=== PATIENT | female | born 1990 | race Caucasian/White ===

== ENCOUNTER 2017-01-13 00:49 | Emergency (ER) | payer SELFPAY ==
[~2017-01-13] VITALS: Ht 172.7 cm; Wt 77.0 kg
[2017-01-13 00:51] VITALS: BP 170/79; PULSE 133; RESP 24; O2SAT 98
[2017-01-13 01:16] VITALS: BP 144/106; PULSE 84; RESP 22; O2SAT 98
[2017-01-13] MEDS ORDERED: SODIUM CHLOR 0.9% 1000 ML INJ 1,000 ML IV SCH (01:19)
[2017-01-13] MEDS ORDERED: MORPHINE SULFATE 4 MG/ML INJ IV ONE (01:30)
[2017-01-13] MEDS ORDERED: DIPHTH/TETANUS/ACEL PERTUSSIS (BOOSTER) 0.5 ML VIAL/PFS IM ONE (01:30)
[2017-01-13] MEDS ORDERED: ONDANSETRON HCL 4 MG/2 ML VIAL IVP ONE (01:30)
[2017-01-13] MEDS ORDERED: ceFAZolin 2 GM PREMIX 50 ML IV ONE (01:30)
[2017-01-13 01:36] VITALS: O2SAT 96
[2017-01-13] MEDS ORDERED: MORPHINE SULFATE 4 MG/ML INJ IV PUSH ONE (01:45)
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
[2017-01-13 01:50] LABS: AUTOMATED NEUTROPHIL # 6.8 TH/MM3 (1.8-7.7); BASOPHIL # 0.1 TH/MM3 (0-0.2); BASOPHIL % 0.6 % (0.0-2.0); EOSINOPHIL # 0.2 TH/MM3 (0-0.4); EOSINOPHIL % 2.5 % (0.0-4.0); HEMATOCRIT 39.2 % (35.0-46.0); HEMO FLAGS DIFF FINAL; LYMPH % 22.2 % (9.0-44.0); LYMPHOCYTE # 2.2 TH/MM3 (1.0-4.8); MEAN CELL VOLUME 81.9 FL (80.0-100.0); MEAN CORPUSCULAR HEMOGLOBIN 27.7 PG (27.0-34.0); MEAN CORPUSCULAR HGB CONC 33.9 % (32.0-36.0); MONO % 6.5 % (0.0-8.0); NEUT % 68.2 % (16.0-70.0); PLATELET COUNT 294 TH/MM3 (150-450); RED BLOOD COUNT 4.79 MIL/MM3 (4.00-5.30); RED CELL DISTRIBUTION WIDTH 12.8 % (11.6-17.2)
[2017-01-13 01:58] LABS: APTT (PATIENT) 28.3 SEC (24.3-30.1); PROTHROMBIN TIME - PATIENT 10.5 SEC (9.8-11.6)
[2017-01-13 02:01] LABS: ALT (GPT) 24 U/L (10-53); ANION GAP 9 MEQ/L (5-15); AST (GOT) 18 U/L (15-37); BICARBONATE 27.2 MEQ/L (21.0-32.0); BLOOD UREA NITROGEN 9 MG/DL (7-18); CHLORIDE 106 MEQ/L (98-107); GLOMERULAR FILTRATION RATE 71 ML/MIN (>89); POTASSIUM 3.6 MEQ/L (3.5-5.1); SODIUM (NA) 142 MEQ/L (136-145)
[2017-01-13 02:03] LABS: ALKALINE PHOSPHATASE 78 U/L (45-117); TOTAL BILIRUBIN ADULT 0.4 MG/DL (0.2-1.0)
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
[2017-01-13 02:35] VITALS: BP 140/85; PULSE 83; RESP 18; O2SAT 99
[2017-01-13 02:58] VITALS: BP 127/77; PULSE 98; RESP 18; O2SAT 99
[2017-01-13] MEDS ORDERED: HYDROmorphone HCL PF 1 MG/ML VIAL IV PUSH ONE ×3 (03:00→05:45)
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
[2017-01-13 05:25] VITALS: BP 122/62; PULSE 69; RESP 18; O2SAT 99
--- NOTE | 2017-01-13 08:10 | EKG ---
Date Performed: 01/13/2017 Time Performed: 01:48:30 PTAGE: 26 years EKG: Sinus rhythm NORMAL ECG NO PREVIOUS TRACING DOCTOR: Andrzej Hagen Interpretating Date/Time 01/13/2017 08:08:31
== END 2017-01-13 05:57 | disposition short-term general hospital (02) ==
LOC: NEPC 00:49
DX: S02.622B Fracture of subcondylar process of left mandible, initial encounter for open fracture (principal); R00.0 Tachycardia, unspecified; F17.200 Nicotine dependence, unspecified, uncomplicated; Y04.2XXA Assault by strike against or bumped into by another person, initial encounter; Z23 Encounter for immunization
CPT/HCPCS: 70450; 70486; 71010; 72125; 80053; 80307; 84703; 85025; 85610; 85730; 90471; 90715; 93005; 96361; 96374; 96375; 96376; 99285; J0690; J1170; J2270; J2405; J7030; L0150

== ENCOUNTER 2017-01-18 19:33 | Emergency (ER) | payer SELFPAY ==
[~2017-01-18] VITALS: Ht 172.7 cm; Wt 80.0 kg
[2017-01-18 19:36] VITALS: BP 149/79; PULSE 107; RESP 20; TEMP 98.8; O2SAT 98
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
[2017-01-18] MEDS ORDERED: OXYC1CON3 PO (20:31)
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
[2017-01-18] MEDS ORDERED: oxyCODONE HCL ORAL CONC 20 MG/ML SYRINGE PO ONE (21:30)
[2017-01-18] MEDS ORDERED: AUGM400S PO (22:30)
[2017-01-18] MEDS ORDERED: HYDR1SOL3 PO (22:30)
== END 2017-01-18 22:47 | disposition home or self-care (01) ==
LOC: NEPE 19:33
DX: G89.18 Other acute postprocedural pain (principal); R22.0 Localized swelling, mass and lump, head; F17.210 Nicotine dependence, cigarettes, uncomplicated
CPT/HCPCS: 99284

== ENCOUNTER 2017-02-09 04:35 | Emergency (ER) | payer SELFPAY ==
[~2017-02-09] VITALS: Ht 175.3 cm; Wt 80.0 kg
[~2017-02-09 04:35] MED LIST: AUGM400S PO; HYDR1SOL3 PO; OXYC1CON3 PO
[2017-02-09 04:40] VITALS: BP 130/77; PULSE 68; RESP 15; O2SAT 95
[2017-02-09] MEDS ORDERED: ACETAMINOPHEN 325MG/HYDROcodone 7.5MG/15ML UDC PO ONE (04:45)
[2017-02-09] MEDS ORDERED: HYDR1SOL3 PO (04:53)
--- NOTE | 2017-02-09 04:53 | PD ---
HPI Chief Complaint: Oral / Dental Pain or Problem Time Seen by Provider: 04:39 Travel History International Travel<30 days: No Contact w/Intl Traveler<30days: No Traveled to known affect area: No History of Present Illness HPI The patient is a 26-year-old female who presents to the emergency department for jaw pain. The patient states she had her jaw broke approximately one month ago, was seen at [facility] transferred to [facility] to have surgery performed. The patient was advised to return to have the wires removed, however, states she has difficulty obtaining transportation [place]. The patient then moved to [place], but was unable to see an oral maxillofacial surgeon in [place]. She returns to [facility] where her mother lives, states her mother is going to help her get [place], however, her mother' s transmission when out. The patient states she is unable to obtain transportation to [facility]. The patient walked up to EMS station earlier today requesting transfer to [facility]. The patient denies any acute trauma to the jaw, states she is able to swallow without difficulty, denies any inflammation or infection. She denies any fever, chills, or sweats. PFSH Past Medical History ?: Not Past Surgical History Other Surgery: Yes ([facility] ) Social History Alcohol Use: No Tobacco Use: Yes (one half pack per day) Substance Use: Yes Allergies-Medications (Allergen,Severity, Reaction): Coded Allergies: No Known Allergies (Unverified , 02/09/17) Reported Meds & Prescriptions Reported Meds & Active Scripts Active No Active Prescriptions or Reported Medications Review of Systems Except as stated in HPI: all other systems reviewed are Neg HENT: Positive: Dental Difficulties, Other Physical Exam Narrative GENERAL: Awake, alert, nontoxic-appearing 26-year-old female appears her stated age is in no acute respiratory distress. SKIN: Focused skin assessment warm/dry. HEAD: Atraumatic. Normocephalic. EYES: Pupils equal and round. No scleral icterus. No injection or drainage. ENT: No nasal bleeding or discharge. Patient has wired of the upper and lower jaw, there is no visible swelling or erythema noted. No bleeding or drainage noted.. NECK: Trachea midline. No JVD. CARDIOVASCULAR: Regular rate and rhythm. No murmur appreciated. RESPIRATORY: No accessory muscle use. Clear to auscultation. Breath sounds equal bilaterally. MUSCULOSKELETAL: No obvious deformities. No clubbing. No cyanosis. No edema. NEUROLOGICAL: Awake and alert. No obvious cranial nerve deficits. Motor grossly within normal limits. Normal speech. PSYCHIATRIC: Appropriate mood and affect; insight and judgment normal. Data Data Last Documented VS Vital Signs Date Time Temp Pulse Resp B/P Pulse Ox O2 Delivery O2 Flow Rate FiO2 02/09/17 04:43 68 02/09/17 04:40 15 130/77 95 Orders Acetamin-Hydrocod 325-7.5 Liq (Hycet 325 (02/09/17 04:45) MDM Medical Decision Making Medical Screen Exam Complete: Yes Emergency Medical Condition: Yes Medical Record Reviewed: Yes Differential Diagnosis Differential diagnosis includes jaw fracture, postoperative infection, postoperative complication, noncompliance. Narrative Course The patient is advised to follow-up with her oral maxillofacial surgeon that performed the surgery at [facility]. We did discuss the patient with case management , case management states they're unable to obtain transportation for the patient to [place]. The patient is advised to find transportation [place] to have the wires removed. I will refill her pain medications. She is stable for outpatient follow-up. Diagnosis Primary Impression: Mandibular fracture Qualified Code: S02.609D - Open fracture of mandible with routine healing, unspecified laterality, unspecified mandibular site, subsequent encounter Patient Instructions: Narcotic given in the ED Additional Instructions: Follow-up with a surgeon at [facility] who performed the surgery, Dr. Denny. Pain medication as directed. Med/Other Pt SpecificInfo: Prescription(s) given Scripts Hydrocodone-Acetaminophen Liq 7.5-325 Mg/15 Ml Soln15 Ml PO Q6H PRN (PAIN) #240 ML Ref 0 Prov:Polo Aponte MD 02/09/17 Disposition: 01 DISCHARGE HOME Condition: Stable Polo Aponte MD Feb 09, 2017 04:53
== END 2017-02-09 05:59 | disposition home or self-care (01) ==
LOC: NEPE 04:35
DX: S02.609D Fracture of mandible, unspecified, subsequent encounter for fracture with routine healing (principal); F17.200 Nicotine dependence, unspecified, uncomplicated; X58.XXXD Exposure to other specified factors, subsequent encounter
CPT/HCPCS: 99283

== ENCOUNTER 2017-06-22 07:46 | Emergency (ER) | payer SELFPAY ==
[~2017-06-22] VITALS: Ht 175.3 cm; Wt 82.0 kg
[~2017-06-22 07:46] MED LIST changes: -AUGM400S PO; -OXYC1CON3 PO
[2017-06-22 07:57] VITALS: BP 122/78; RESP 24; TEMP 98.3; O2SAT 93
--- NOTE | 2017-06-22 08:27 | RADRPT ---
EXAM DATE/TIME: 06/22/2017 08:23 [facility] COMPARISON: CHEST SINGLE AP, January 13, 2017, 1:32. INDICATIONS : Shortness of breath, possible overdose. MEDICAL HISTORY : None. SURGICAL HISTORY : None. ENCOUNTER: Initial ACUITY: 1 day PAIN SCORE: 0/10 LOCATION: Bilateral chest FINDINGS: A single view of the chest demonstrates diminished lung volumes without evidence of mass, infiltrate or effusion. The cardiomediastinal contours are unremarkable. Osseous structures are intact. CONCLUSION: Diminished lung volumes. No acute disease. Castillo Bueno MD on June 22, 2017 at 8:25 Board Certified Radiologist. This report was verified electronically.
--- NOTE | 2017-06-22 11:49 | EKG ---
Date Performed: 06/22/2017 Time Performed: 08:01:47 PTAGE: 26 years EKG: Sinus rhythm NORMAL ECG NO PREVIOUS TRACING DOCTOR: Andrzej Hagen Interpretating Date/Time 06/22/2017 11:48:15
--- NOTE | 2017-06-22 12:55 | PD ---
HPI Chief Complaint: OD/ Ingestion Time Seen by Provider: 08:11 Travel History International Travel<30 days: No Contact w/Intl Traveler<30days: No Traveled to known affect area: No History of Present Illness HPI 26-year-old female was brought in by EMS as a heroin overdose. She was found with a GCS of 3 and cyanotic. Patient received Narcan at the scene which woke her up and she has been awake and breathing since then. He does seem a little bit somnolent but does answer questions appropriately. The police is here with her as well. Patient says that she shoots heroin every day. She used somebody else's and thinks that was the reason why she overdosed. Vital signs are stable. Patient received a total of 1.2 mg of Narcan IV. Patient has refused to do any blood work. [facility] Past Medical History Narrative Medical List of her past medical, surgical, social and family history is reviewed from the nursing note. Medical History: Denies Significant Hx Influenza Vaccination: No ?: Unknown Past Surgical History Other Surgery: Yes ([facility] ) Social History Alcohol Use: Yes Tobacco Use: Yes (one half pack per day) Substance Use: Yes (HEROINE, COCAINE) Allergies-Medications (Allergen,Severity, Reaction): Coded Allergies: No Known Allergies (Unverified Adverse Reaction, Unknown, 06/22/17) Comments No known drug allergies. Reported Meds & Prescriptions Reported Meds & Active Scripts Active No Active Prescriptions or Reported Medications Narrative Medication List of her home medications reviewed from the nursing note. Review of Systems ROS Limitations: Altered Mental Status Except as stated in HPI: all other systems reviewed are Neg Psychiatric: Positive: Substance Abuse Physical Exam Narrative GENERAL: Lethargic but answering questions appropriately, disheveled SKIN: Focused skin assessment warm/dry. Poor skin hygiene HEAD: Atraumatic. Normocephalic. EYES: Pupils equal and round. No scleral icterus. No injection or drainage. ENT: No nasal bleeding or discharge. Mucous membranes pink and moist. NECK: Trachea midline. No JVD. CARDIOVASCULAR: Regular rate and rhythm. No murmur appreciated. RESPIRATORY: No accessory muscle use. Clear to auscultation. Breath sounds equal bilaterally. GASTROINTESTINAL: Abdomen soft, non-tender, nondistended. Hepatic and splenic margins not palpable. MUSCULOSKELETAL: No obvious deformities. No clubbing. No cyanosis. No edema. NEUROLOGICAL: GCS of 14. No obvious cranial nerve deficits. Motor grossly within normal limits. Slurred speech. PSYCHIATRIC: Appropriate mood and affect; insight and judgment normal. Data Data Last Documented VS Vital Signs Date Time Temp Pulse Resp B/P (MAP) Pulse Ox O2 Delivery O2 Flow Rate FiO2 06/22/17 13:12 06/22/17 13:08 72 17 98 Room Air 06/22/17 07:57 98.3 Orders Orders Chest, Single Ap (06/22/17 ) Electrocardiogram (06/22/17 ) Ed Discharge Order (06/22/17 12:51) [facility] Medical Decision Making Medical Screen Exam Complete: Yes Emergency Medical Condition: Yes Medical Record Reviewed: Yes Interpretation(s) Twelve-lead EKG was reviewed by me. Normal sinus rhythm, normal axis, nonspecific ST-T wave changes. Heart rate of 75 bpm. Differential Diagnosis Heroin overdose Narrative Course 12:54 PM I just reassessed the patient. She was sleeping but woke up abruptly as I called her name. Chest x-ray was done initially since patient had vomited. X-ray is negative for any aspiration pneumonia. I'm comfortable discharging her home. Procedures EKG Prior to Arrival: No Diagnosis Primary Impression: Accidental heroin overdose Qualified Codes: T40.1X1A - Poisoning by heroin, accidental (unintentional), initial encounter Referrals: Primary Care Physician Additional Instructions: Heroin or any illicit drugs are dangerous to your health. You should not be using them. Med/Other Pt SpecificInfo: No Change to Meds Scripts No Active Prescriptions or Reported Meds Disposition: 01 DISCHARGE HOME Condition: Stable Sridevi Mills MD Jun 22, 2017 12:55
[2017-06-22 13:08] VITALS: BP 97/51; PULSE 72; RESP 17; O2SAT 98
== END 2017-06-22 13:56 | disposition home or self-care (01) ==
LOC: NEPC 07:46
DX: T40.1X1A Poisoning by heroin, accidental (unintentional), initial encounter (principal); R06.02 Shortness of breath
CPT/HCPCS: 71010; 93005; 99284

== ENCOUNTER 2017-12-25 19:20 | Emergency (ER) | payer MEDICAID, OTHER ==
[~2017-12-25] VITALS: Ht 175.3 cm; Wt 95.0 kg
[2017-12-25 19:35] VITALS: BP 141/78; PULSE 99; RESP 16; TEMP 97.9; O2SAT 97
[2017-12-25 23:42] VITALS: BP 167/108; PULSE 92; RESP 18; O2SAT 100
[2017-12-25] MEDS ORDERED: CLEO300C2 PO (23:52)
[2017-12-26] MEDS ORDERED: CLINDAMYCIN 150 MG CAP PO ONE
--- NOTE | 2017-12-26 00:03 | PD ---
HPI Chief Complaint: Skin Problem Time Seen by Provider: 23:41 Travel History International Travel<30 days: No Contact w/Intl Traveler<30days: No Traveled to known affect area: No History of Present Illness HPI 27-year-old white female with a 23 week who has not received care as of yet presents with complains of a right axilla abscess. She states that over the past week it has become increasingly painful and swollen. She denies any fever chills. She does report some intermittent abdominal cramping and was planning on going upstairs to L&D to be evaluated. Symptoms are moderate. No alleviating factors. No exacerbating factor. PFSH Past Medical History Narrative Medical Substance abuse, Tetanus Vaccination: Unknown ?: LMP: 06/16/17 Past Surgical History Surgical History: No Previous Surgery Other Surgery: Yes ([facility] ) Social History Alcohol Use: Yes Tobacco Use: Yes (one half pack per day) Substance Use: Yes (HEROINE, COCAINE) Allergies-Medications (Allergen,Severity, Reaction): Coded Allergies: No Known Allergies (Unverified Adverse Reaction, Unknown, 12/25/17) Reported Meds & Prescriptions Reported Meds & Active Scripts Active Cleocin (Clindamycin HCl) 300 Mg Cap 300 Mg PO Q6H 10 Days Review of Systems General / Constitutional: No: Fever Eyes: No: Visual changes HENT: No: Headaches Cardiovascular: No: Chest Pain or Discomfort Respiratory: No: Shortness of Breath Gastrointestinal: No: Abdominal Pain Genitourinary: Positive: Pelvic Pain, No: Dysuria Musculoskeletal: No: Pain Skin: Positive Rash, Positive Lumps Neurologic: No: Weakness Psychiatric: No: Depression Endocrine: No: Polydipsia Hematologic/Lymphatic: No: Easy Bruising Physical Exam Narrative GENERAL: This is a well-nourished, well-developed patient, in no apparent distress. SKIN: Patient has a 2 x 3 cm fluctuant abscess to the right axilla with a large lymph node inferiorly. It is tender, erythematous. No pointing. HEAD: Atraumatic. Normocephalic. EYES: PERRL, EOMI, no discharge or injection. No scleral icterus. EARS: Clear NOSE: Nasal turbinates appear normal. THROAT: Mucosa pink and moist. Airway patent. NECK: Trachea midline. supple, moves head freely. LUNGS: Clear to auscultation. CV: Regular in rhythm. ABDOMEN: Soft nontender. Obese, gravid. EXT: No clubbing cyanosis or edema. Data Data Last Documented VS Vital Signs Date Time Temp Pulse Resp B/P (MAP) Pulse Ox O2 Delivery O2 Flow Rate FiO2 12/25/17 23:55 12/25/17 23:42 92 18 100 Room Air 12/25/17 19:35 97.9 Orders Orders Ed Discharge Order (12/25/17 23:54) Clindamycin (Cleocin) (12/26/17 00:00) MDM Medical Decision Making Medical Screen Exam Complete: Yes Emergency Medical Condition: Yes Medical Record Reviewed: Yes Differential Diagnosis MDM: High Differential diagnoses: Abscess, folliculitis, cellulitis, lymphangitis, abrasion, contact dermatitis Narrative Course Needle aspiration has been performed. Patient given clindamycin 300 mg p.o. She will be discharged and have her follow up with L&D. Procedures Procedure Narrative Right axilla needle aspiration: The skin is prepped with Hibiclens. 1% lidocaine with epinephrine local. An 18-gauge needle was inserted into the abscess cavity after adequate anesthesia. 4 cc of purulent pus is expressed. The abscess is decompressed. She is feeling much improved. No complication. Diagnosis Primary Impression: Right axilla abscess Patient Instructions: General Instructions Additional Instructions: Rest. Elevation. keep clean and dry. Warm compresses. Clindamycin. Follow-up with a [employer] doctor this week. Follow-up with a primary care doctor in one week. Return to the ER for any problems. Med/Other Pt SpecificInfo: Prescription(s) given Scripts Clindamycin (Cleocin) 300 Mg Cap 300 MG PO Q6H for Infection for 10 Days, #40 CAP 0 Refills Prov: Celena Red DO 12/25/17 Disposition: 01 DISCHARGE HOME Condition: Stable Joaquin Bruner December 26, 2017 00:03
== END 2017-12-26 00:16 | disposition home or self-care (01) ==
LOC: NETRI 19:20 → NEPD 19:20 → NETRI 21:41 → NEPD 12-26 00:16
DX: O99.89 Other specified diseases and conditions complicating pregnancy, childbirth and the puerperium (principal); L02.411 Cutaneous abscess of right axilla; Z3A.23 23 weeks gestation of pregnancy
CPT/HCPCS: 10160

== ENCOUNTER 2017-12-26 00:22 | Emergency (ER) | payer SELFPAY ==
[~2017-12-26 00:22] MED LIST changes: +CLEO300C2 PO; -HYDR1SOL3 PO
[2017-12-26 00:47] VITALS: RESP 16; TEMP 98.5
[2017-12-26 00:49] VITALS: BP 130/75; PULSE 81
--- NOTE | 2017-12-26 00:56 | PD ---
HPI Chief Complaint pelvic pain Date Seen: December 26, 2017 Time Seen: 00:42 Travel History International Travel<30 Days: No Contact w/Intl Traveler<30Days: No Known Affected Area: No History of Present Illness HPI Pt is a 27y/o @ unknown EGA. She has no PNC. She presents for abdominal cramping. She states that her LMP was in May. She "didn't think about being " b/c she has "endometriosis" which causes irregular periods. 1m ago, pt states she took a UPT which was positive. She had bleeding but states she had to go to [place] for a family emergency and was arrested/ incarcerated while there. She spent a month in assisted and was just released. She denies seeing a provider for care while incarcerated. She states that she didn't even know if she was still b/c of the bleeding a month earlier. She requested a UPT which was positive prior to release. That was 1 wk ago. Pt states yesterday she went to the and enrolled in Medicaid and has an appt Thursday to choose an OBGYN for care. She reports that she was a high risk her last baby due to "antibodies to S". She denies LOF, VB, ctx. She is just wanting to get "checked out" today. She was sent from the ED after being seen for an axillary abscess. Pt has a h/o IVDA with overdose last year. When asked, she reports she "smokes cigarettes" and "recent did some heroin". Para: 2 : 3 History Past Medical History Narrative Medical polysubstance abuse Obstetric History Obstetric History x2 Past Surgical History Surgical History: No Previous Surgery Family History Family History: Negative Social History Alcohol Use: No Tobacco Use: Yes Substance Abuse: Yes (per chart, daily heroin/cocaine) Allergies-Medications (Allergen,Severity, Reaction): Coded Allergies: No Known Allergies (Unverified Adverse Reaction, Unknown, 12/25/17) Home Meds Active Scripts Clindamycin (Cleocin) 300 Mg Cap, 300 MG PO Q6H for Infection for 10 Days, #40 CAP 0 Refills Prov:Celena Red DO 12/25/17 Review of Systems Except as stated in HPI: all other systems reviewed are Neg Physical Exam Narrative General: well developed, well nourished, no acute distress HEENT: normocephalic atraumatic, extraocular movements intact, neck supple Abdomen: soft, gravid, nontender, nondistended Uterus: fundus palpates to 20wks Extremities: full range of motion Skin: normal coloration, no rashes, covered in track keating and wounds from IVDA Neurologic: cranial nerves 2-12 grossly intact, normal muscle tone, normal gait Psychiatric: normal mood and affect, appropriate FHTs: present @ [address] [employer]: quiet Cvx: deferred Data Data Vital Signs Reviewed: Yes Orders Orders Vital Signs (Adult) .ON ADMISSION (12/26/17 00:31) ^ Labor Status (12/26/17:31) Urinalysis - C+S If Indicated (12/26/17:31) ^ Non Stress Test (12/26/17:31) Drug Screen, Random Urine (12/26/17:31) MDM Plan 27y/o @ unknown EGA with no PNC, IVDA, pelvic pain. -- +FHTs -- toco quiet -- urine dip neg for UTI -- UDS sent Dispo: d/c home with precautions, advised against illicits in , counseled on the importance of PNC Diagnosis Diagnosis: Primary Impression: Additional Impressions: No care in current IV drug abuse complicating Pelvic pain affecting Harshal Mendiola MD December 26, 2017 00:56
[2017-12-26 01:29] LABS: AMORPHOUS SEDIMENT, URINE RARE; BACTERIA, URINE RARE /hpf; BILIRUBIN, URINE NEG (NEG); BLOOD, URINE NEG (NEG); GLUCOSE,URINE NEG (NEG); KETONE, URINE NEG (NEG); MUCUS URINE FEW /lpf (OCC); NITRITE,URINE NEG (NEG); PH, URINE 7.5 (5.0-8.5); SQUAMOUS EPITHELIAL CELL URINE 3 /hpf (0-5); URINE COLOR YELLOW (YELLW/STRAW); URINE LEUKOCYTE ESTERASE NEG (NEG)
== END 2017-12-26 02:16 | disposition home or self-care (01) ==
LOC: HOBED 00:22
DX: O09.30 Supervision of pregnancy with insufficient antenatal care, unspecified trimester (principal); O26.899 Other specified pregnancy related conditions, unspecified trimester; R10.2 Pelvic and perineal pain; O99.320 Drug use complicating pregnancy, unspecified trimester; F11.90 Opioid use, unspecified, uncomplicated; Z3A.00 Weeks of gestation of pregnancy not specified
CPT/HCPCS: 80307; 81001; 99283

== ENCOUNTER 2018-02-07 19:12 | Emergency (ER) | payer OTHER ==
[~2018-02-07] VITALS: Ht 162.6 cm; Wt 72.0 kg
[2018-02-07 19:17] VITALS: BP 137/63; PULSE 94; RESP 16; TEMP 98.4; O2SAT 99
[2018-02-07] MEDS ORDERED: CLIN150C14 PO (19:57)
[2018-02-07] MEDS ORDERED: BACT800T5 PO (19:57)
--- NOTE | 2018-02-07 19:57 | PD ---
HPI Chief Complaint: Skin Problem Time Seen by Provider: 19:42 Travel History International Travel<30 days: No Contact w/Intl Traveler<30days: No Traveled to known affect area: No History of Present Illness HPI 27-year-old female complains of infected lesions on extremity. Patient has history: Infected lesions on extremity. Patient has history IV drug abuse. Patient denies any fever chills. Patient states that she has increasing pain and swelling on the axillas area in both arms for the past few days. Patient denies any headache. Patient denies any neck pain. Patient denies any chest pain or shortness of breath. Patient denies abdominal pain. Patient denies any back pain. Patient denies any nausea vomiting diarrhea. PFSH Past Medical History Immunizations Current: Yes Tetanus Vaccination: < 5 Years Influenza Vaccination: No ?: Unknown LMP: 02/05/18 Past Surgical History Other Surgery: Yes ([facility] ) Social History Alcohol Use: No Tobacco Use: Yes Substance Use: Yes (HEROINE, COCAINE) Allergies-Medications (Allergen,Severity, Reaction): Coded Allergies: No Known Allergies (Unverified Adverse Reaction, Unknown, 02/07/18) Reported Meds & Prescriptions Reported Meds & Active Scripts Active Cleocin (Clindamycin HCl) 300 Mg Cap 300 Mg PO Q6H 10 Days Review of Systems General / Constitutional: No: Fever Eyes: No: Visual changes HENT: No: Headaches Cardiovascular: No: Chest Pain or Discomfort Respiratory: No: Shortness of Breath Gastrointestinal: No: Abdominal Pain Genitourinary: No: Dysuria Musculoskeletal: Positive: Pain Skin: No Rash Neurologic: No: Weakness Psychiatric: No: Depression Endocrine: No: Polydipsia Hematologic/Lymphatic: No: Easy Bruising Physical Exam Narrative GENERAL: Well-nourished, well-developed patient. SKIN: Focused skin assessment warm/dry. HEAD: Normocephalic. EYES: No scleral icterus. No injection or drainage. NECK: Supple, trachea midline. No JVD or lymphadenopathy. CARDIOVASCULAR: Regular rate and rhythm without murmurs, gallops, or rubs. RESPIRATORY: Breath sounds equal bilaterally. No accessory muscle use. GASTROINTESTINAL: Abdomen soft, non-tender, nondistended. MUSCULOSKELETAL: No cyanosis, or edema. BACK: Nontender without obvious deformity. No CVA tenderness. Patient has several nodular lesions bilateral axilla area with mild tenderness on palpation. No drainage noted. No induration. Patient has an area redness swelling tenderness left antecubital area and left forearm. No induration. No discharge. Patient has a small area of redness swelling tenderness right antecubital area. No induration noted. Data Data Last Documented VS Vital Signs Date Time Temp Pulse Resp B/P (MAP) Pulse Ox O2 Delivery O2 Flow Rate FiO2 02/07/18 19:17 98.4 94 16 137/63 (87) 99 Orders Orders Clindamycin Inj (Cleocin Inj) (02/07/18 20:00) Sulfamet-Trimeth Ds 800-160 Mg (Bactrim (02/07/18 20:00) MDM Medical Decision Making Medical Screen Exam Complete: Yes Emergency Medical Condition: Yes Differential Diagnosis Differential diagnosis including folliculitis, cellulitis, abscess. Narrative Course 27-year-old female with infected lesions on axial area and redness swelling tenderness bilateral antecubital area and left forearm. History IV drug abuse. Clindamycin 600 mg IM. Bactrim DS 1 tablet p.o. given. Diagnosis Primary Impression: Cellulitis Qualified Codes: L03.119 - Cellulitis of unspecified part of limb Patient Instructions: General Instructions Additional Instructions: Take clindamycin and Bactrim DS as directed. Moist warm compress to the area. Return in 2 days for recheck. Med/Other Pt SpecificInfo: Prescription(s) given Scripts Sulfamethoxazole-Trimethoprim (Bactrim DS) 800-160 Mg Tab 1 TAB PO BID for Infection, #20 TAB 0 Refills Prov: Colin Edwards MD 02/07/18 Clindamycin (Clindamycin) 150 Mg Cap 300 MG PO QID for Infection, #80 CAP 0 Refills Prov: Colin Edwards MD 02/07/18 Disposition: 01 DISCHARGE HOME Condition: Stable Colin Edwards MD Feb 07, 2018 19:57
[2018-02-07] MEDS ORDERED: CLINDAMYCIN PHOS 600 MG/4 ML VIAL IM ONE (20:00)
[2018-02-07] MEDS ORDERED: SULFAMETHOXAZOLE-TRIMETHOPRIM DS 800-160 MG TAB PO ONE (20:00)
== END 2018-02-07 20:17 | disposition home or self-care (01) ==
LOC: NEPD 19:12
DX: L03.112 Cellulitis of left axilla (principal); L03.111 Cellulitis of right axilla; L03.114 Cellulitis of left upper limb; L03.113 Cellulitis of right upper limb; Z72.0 Tobacco use
CPT/HCPCS: 96372